=== PATIENT | male | born 1960 | race Caucasian/White ===

== ENCOUNTER → 2020-03-12 | Outpatient (CLI) | payer BC ==
--- NOTE | 2020-03-12 14:34 | EST ---
EXERCISE STRESS DATE OF SERVICE: 03/12/2020 AGE: 60 SEX: M HT: 70" WT: 180 lbs PROTOCOL: Ras STAGE: 4 DURATION OF EXERCISE: 9:45 minutes HEART RATE REST: 66 BLOOD PRESSURE REST: 111/81. MAXIMUM HEART RATE ACHIEVED: 152 MAXIMUM BLOOD PRESSURE: 185/69 85% MPHR: 136 100% MPHR: 160 METS: 11.3 INDICATIONS: Chest pain. STRESS DATA: Heart rate 66, pressure 111/81 mmHg. Baseline EKG showed sinus mechanism. The patient exercised on the treadmill according to Ras protocol for a total of 9 minutes and 45 seconds and achieved 11.3 METS. Max heart rate was 152 which is about 95% of maximum predicted heart rate. Maximum blood pressure was 185/69 mmHg. Clinically, the patient did not have any symptoms of chest pain or chest discomfort. The EKG did not show any significant ST or T-wave abnormalities concerning for ischemia. ECHOCARDIOGRAM IMAGES: On echocardiogram images from parasternal long axis, parasternal short axis view, apical 4 chamber and apical 2 chambers were obtained at the baseline images, at the peak of the heart rate as well as on recovery. CONCLUSION: 1. Excellent exercise tolerance. 2. Normal EKG in response to exercise. 3. Normal echocardiogram in response to exercise. 4. Essentially normal stress echocardiogram for the patient. MMODL / IJN: [id number] /
== END | disposition home or self-care (01) ==
LOC: RADNMMAIN 09:10
PROVIDERS: ATTEND Family Medicine
DX: R06.00 Dyspnea, unspecified (principal)
CPT/HCPCS: 93351